=== PATIENT | male | born 1945 | race Caucasian/White ===

== ENCOUNTER 2019-02-03 12:15 | Emergency (ER) | payer OTHER, MEDICARE ==
[~2019-02-03] VITALS: Ht 167.6 cm; Wt 73.0 kg
[~2019-02-03 12:15] MED LIST: ASPI-611 PO; ATOR10TA87 PO; CHOL400T32 PO; CLOP75TA35 PO; DOCU-20 PO; DONE10TA7 PO; FERR325T28 PO; FLO0.1T PO; METO-292 PO; MIDO10TA PO; NEFA200T PO; ONDA4TAB9 PO; PANT-47 PO; PROC10TA10 PO; VENL75TA4 PO
[2019-02-03] MEDS ORDERED: normal saline 1000ML IV soln IVB ONE (12:40)
[2019-02-03] MEDS ORDERED: ondansetron/PF 4mg/2ml inj IV ONE (12:45)
[2019-02-03 13:24] LABS: BASOPHILS # (AUTO) 0.1 X10'3 (0-0.2); BASOPHILS % (AUTO) 0.8 % (0-1); EOSINOPHILS % (AUTO) 0.1 % (0-6); HEMATOCRIT 40.3 % (42.0-52.0); HEMOGLOBIN 13.7 g/dl (14.0-17.9); LYMPHOCYTES # (AUTO) 0.8 X10'3 (1.1-4.8); LYMPHOCYTES % (AUTO) 8.6 % (21-51); MEAN CORPUSCULAR HEMOGLOBIN 31.9 PG (27.0-31.0); MEAN CORPUSCULAR VOLUME 93.8 FL (78-98); MEAN PLATELET VOLUME 9.1 FL (7.4-10.4); MONOCYTES # (AUTO) 0.7 X10'3 (0-0.9); MONOCYTES % (AUTO) 8.3 % (2-12); NEUTROPHILS # (AUTO) 7.3 X10'3 (1.8-7.7); NEUTROPHILS % (AUTO) 82.2 % (42-75); PLATELET COUNT 208 X10'3 (140-440); RED CELL DISTRIBUTION WIDTH 13.6 % (11.5-14.5); WHITE BLOOD COUNT 8.9 X10'3 (4.5-11.0)
[2019-02-03 13:33] LABS: CLARITY,URINE CLEAR (Clear); COLOR,URINE YELLOW (Yellow); GLUCOSE, URINE 500 mg/dl (Neg); KETONES,URINE 15 mg/dl (Neg); LEUKOCYTE ESTERASE ,URINE NEGATIVE (Neg); NITRITES, URINE NEGATIVE (Neg); OCCULT BLOOD,URINE NEGATIVE (Neg); PROTEIN,URINE NEGATIVE (Neg); UROBILINOGEN,URINE 0.2 E.U/dL (0.2-1.0)
[2019-02-03 13:34] LABS: UA COLLECTION TYPE URINAL
[2019-02-03 13:38] LABS: PARTIAL THROMBOPLASTIN TIME 23 SECONDS (22-32)
[2019-02-03 13:45] LABS: ALANINE AMINOTRANSFERASE 25 U/L (12-78); ALBUMIN 3.6 G/DL (3.4-5.0); ALKALINE PHOSPHATASE 82 IU/L (46-116); ANION GAP 9 (8-16); ASPARTATE AMINO TRANSFERASE 14 U/L (10-37); BILIRUBIN,TOTAL 0.6 MG/DL (0.1-1.0); BLOOD UREA NITROGEN 32 MG/DL (7-18); BUN/CREATININE RATIO 14.5 (5.4-32.0); CALCIUM 10.1 MG/DL (8.5-10.1); CHLORIDE 99 MMOL/L (99-107); GLUCOSE 295 MG/DL (70-104); MAGNESIUM 1.8 MG/DL (1.5-2.4); POTASSIUM 3.7 MMOL/L (3.5-5.1); SODIUM 139 MMOL/L (135-145); TOTAL CARBON DIOXIDE 30.9 MMOL/L (24-32); TOTAL PROTEIN 7.1 G/DL (6.4-8.2); eGFR 30 ML/MIN
[2019-02-03 14:13] VITALS: BP 148/70
--- NOTE | 2019-02-03 14:13 | NUR ---
PT TOLERATING PO, PT GIVEN 8OZ CUP OF WATER, FINISHED THE CUP DENIES ANY N/V.
== END 2019-02-03 14:52 | disposition home or self-care (01) ==
LOC: ER 12:16
DX: E11.43 Type 2 diabetes mellitus with diabetic autonomic (poly)neuropathy (principal); K31.84 Gastroparesis; R11.2 Nausea with vomiting, unspecified; I25.10 Atherosclerotic heart disease of native coronary artery without angina pectoris; E78.00 Pure hypercholesterolemia, unspecified; I10 Essential (primary) hypertension; E03.9 Hypothyroidism, unspecified; Z87.891 Personal history of nicotine dependence; Z90.49 Acquired absence of other specified parts of digestive tract; Z95.1 Presence of aortocoronary bypass graft; Z79.82 Long term (current) use of aspirin; Z79.899 Other long term (current) drug therapy
CPT/HCPCS: 36415; 71045; 80053; 81003; 82948; 83605; 83735; 84145; 84484; 85025; 85610; 85730; 93005; 96361; 96374; 99284; J2405; J7030

== ENCOUNTER 2019-07-25 12:22 | Inpatient (IN) | payer MEDICARE, OTHER ==
[~2019-07-25] VITALS: Ht 172.7 cm; Wt 72.7 kg
[2019-07-25] MEDS ORDERED: normal saline 1000ML IV soln IV ONE (12:45)
[2019-07-25 13:36] LABS: BASOPHILS # (AUTO) 0.1 X10'3 (0-0.2); BASOPHILS % (AUTO) 1.3 % (0-1); EOSINOPHILS # (AUTO) 0.3 X10'3 (0-0.9); EOSINOPHILS % (AUTO) 4.5 % (0-6); HEMATOCRIT 40.2 % (42.0-52.0); HEMOGLOBIN 13.5 g/dl (14.0-17.9); LYMPHOCYTES # (AUTO) 1.5 X10'3 (1.1-4.8); LYMPHOCYTES % (AUTO) 22.2 % (21-51); MEAN CORPUSCULAR HGB CONC 33.6 g/dL (33.0-36.5); MEAN CORPUSCULAR VOLUME 95.4 FL (78-98); MEAN PLATELET VOLUME 8.8 FL (7.4-10.4); MONOCYTES % (AUTO) 14.3 % (2-12); NEUTROPHILS # (AUTO) 3.9 X10'3 (1.8-7.7); NEUTROPHILS % (AUTO) 57.7 % (42-75); PLATELET COUNT 193 X10'3 (140-440); RED BLOOD COUNT 4.21 X10'6 (4.70-6.10); RED CELL DISTRIBUTION WIDTH 13.6 % (11.5-14.5); WHITE BLOOD COUNT 6.8 X10'3 (4.5-11.0)
[2019-07-25 13:55] LABS: ALANINE AMINOTRANSFERASE 27 U/L (12-78); ALBUMIN 3.1 G/DL (3.4-5.0); ALBUMIN/GLOBULIN RATIO 0.8 (1.1-1.5); ALKALINE PHOSPHATASE 82 IU/L (46-116); ANION GAP 7 (8-16); ASPARTATE AMINO TRANSFERASE 23 U/L (10-37); BILIRUBIN,TOTAL 0.3 MG/DL (0.1-1.0); CALCIUM 9.7 MG/DL (8.5-10.1); CHLORIDE 111 MMOL/L (99-107); CREATININE 1.43 MG/DL (0.60-1.10); GLUCOSE 88 MG/DL (70-104); PARTIAL THROMBOPLASTIN TIME 21 SECONDS (22-32); SODIUM 151 MMOL/L (135-145); TOTAL CARBON DIOXIDE 32.6 MMOL/L (24-32); TOTAL PROTEIN 6.8 G/DL (6.4-8.2); eGFR 49 ML/MIN
[2019-07-25 13:57] LABS: POTASSIUM 2.9 MMOL/L (3.5-5.1)
[2019-07-25] MEDS ORDERED: potassium Cl 10 mEq/100mL bag IV ONE (14:00)
[2019-07-25 14:33] LABS: BLOOD UREA NITROGEN 21 MG/DL (7-18); BUN/CREATININE RATIO 14.7 (5.4-32.0)
[2019-07-25] MEDS ORDERED: acetaminophen 650mg rectal suppository RC PRN (15:05)
[2019-07-25] MEDS ORDERED: ondansetron/PF 4mg/2ml inj IV PRN (15:05)
[2019-07-25] MEDS ORDERED: acetaminophen 325mg tablet PO PRN ×2 (15:05)
[2019-07-25] MEDS ORDERED: bisacodyl 10mg suppository rectal RC PRN (15:05)
[2019-07-25] MEDS ORDERED: magnesium 4gm in 100ml NS 100 ML IV PRN (15:05)
[2019-07-25] MEDS ORDERED: magnesium 2GM in 50ml NS 50 ML IV PRN (15:05)
[2019-07-25] MEDS ORDERED: diphenhydrAMINE 50 mg/ml inj IV PRN (15:05)
[2019-07-25] MEDS ORDERED: mag hydrox/Alum hydrox/simeth 30ml oral suspension PO PRN (15:05)
[2019-07-25] MEDS ORDERED: magnesium hydroxide 30ml (MOM) UD suspension PO PRN (15:05)
[2019-07-25] MEDS ORDERED: morphine 2 MG/ML inj. syringe IV PRN ×2 (15:05)
[2019-07-25] MEDS ORDERED: HYDROcodone/acetaminophen 10/325mg tab PO PRN (15:05)
[2019-07-25] MEDS ORDERED: potassium CL 10mEq/100ml bag 100 ML IV PRN (15:05)
[2019-07-25] MEDS ORDERED: HYDROcodone/acetaminophen 5mg/325mg tablet PO PRN (15:05)
[2019-07-25] MEDS ORDERED: diphenhydrAMINE 25mg capsule PO PRN (15:05)
[2019-07-25] MEDS: K and/or MAG REPLACEMENT MC SCH (15:05)
--- NOTE | 2019-07-25 15:15 | NUR ---
URINE SAMPLE COLLECTED BY STARIGHT CATH EMPTIED 250 ML OF URINE ,COLOR LESS URINE .PT DIAPER WET SHEET CHANGED.
[2019-07-25 15:24] LABS: CLARITY,URINE CLEAR (Clear); COLOR,URINE STRAW (Yellow); GLUCOSE, URINE NEGATIVE (Neg); KETONES,URINE NEGATIVE (Neg); LEUKOCYTE ESTERASE ,URINE NEGATIVE (Neg); NITRITES, URINE NEGATIVE (Neg); OCCULT BLOOD,URINE TRACE-INTACT (Neg); PH,URINE 7.5 (4.8-8.0); PROTEIN,URINE NEGATIVE (Neg); UROBILINOGEN,URINE 0.2 E.U/dL (0.2-1.0)
[2019-07-25 15:31] LABS: UA COLLECTION TYPE STRAIGHT CATH
[2019-07-25 15:34] LABS: HEMOGLOBIN A1C 6.5 % (4.5-6.2)
[2019-07-25 15:38] LABS: BACTERIA,URINE NONE SEEN /HPF (Neg); RBC,URINE 0-2 /HPF (0-2); WBC,URINE 0-4 /HPF (0-4)
[2019-07-25] MEDS: normal saline 1000ml 1,000 ML IV SCH (15:38)
[2019-07-25 15:39] LABS: SQUAMOUS EPITHELIAL CELL,UR FEW /LPF (FEW)
--- NOTE | 2019-07-25 17:10 | NUR ---
PT BED FULLY WET DIAPER CHANGED WITH ALL SHEET AND CLOTHING ,PT HAD BM .IV FLUID INFUSING PER MD ORDERS,NO DISTRESS NOTED.
[2019-07-25] MEDS: metoclopramide 10mg tablet PO SCH (18:40)
--- NOTE | 2019-07-25 18:42 | NUR ---
PT MED SCHEDULED ADMINI ,PT VITALS STABLE HR 96,SPO2 97 ON RA,179/115 BP .R 14.PT JUST LEFT IV FLUID INFUSING PER MD ORDER.
--- NOTE | 2019-07-25 19:40 | NUR ---
pt sitting up in bed eating his dinner independently.no distress noted.will cont monitor.
[2019-07-25] MEDS ORDERED: MIDODRINE HCL 10 MG PO SCH (20:00)
[2019-07-25] MEDS: heparin, porcine 5000 units/ml vial SQ SCH (20:37)
[2019-07-25] MEDS: docusate sod 100mg capsule PO SCH (20:37)
[2019-07-25] MEDS: atorvastatin 10mg tablet PO SCH (20:37)
[2019-07-25] MEDS ORDERED: NEFAZODONE PO SCH (21:00)
[2019-07-25] MEDS: pantoprazole 40mg Tablet.DR PO SCH (21:53)
[2019-07-25] MEDS: donepezil 5mg tablet PO SCH (21:53)
[2019-07-25] MEDS: fludrocortisone acetate 0.1mg tablet PO SCH (21:53)
[2019-07-25] MEDS: potassium CL 10mEq/100ml bag 100 ML IV PRN (21:54)
[2019-07-25] MEDS ORDERED: midodrine 5mg tablet PO SCH (22:02)
[2019-07-26] MEDS: normal saline 1000ml 1,000 ML IV SCH ×2 (01:03→05:24)
[2019-07-26] MEDS: potassium CL 10mEq/100ml bag 100 ML IV PRN ×2 (01:37→09:20)
[2019-07-26 05:29] LABS: BASOPHILS # (AUTO) 0.1 X10'3 (0-0.2); BASOPHILS % (AUTO) 1.4 % (0-1); EOSINOPHILS # (AUTO) 0.2 X10'3 (0-0.9); EOSINOPHILS % (AUTO) 2.7 % (0-6); HEMATOCRIT 43.8 % (42.0-52.0); HEMOGLOBIN 14.7 g/dl (14.0-17.9); LYMPHOCYTES # (AUTO) 1.7 X10'3 (1.1-4.8); MEAN CORPUSCULAR HEMOGLOBIN 31.4 PG (27.0-31.0); MEAN CORPUSCULAR HGB CONC 33.5 g/dL (33.0-36.5); MEAN CORPUSCULAR VOLUME 93.7 FL (78-98); MONOCYTES # (AUTO) 0.8 X10'3 (0-0.9); MONOCYTES % (AUTO) 12.3 % (2-12); NEUTROPHILS # (AUTO) 3.9 X10'3 (1.8-7.7); NEUTROPHILS % (AUTO) 58.6 % (42-75); PLATELET COUNT 209 X10'3 (140-440); RED BLOOD COUNT 4.68 X10'6 (4.70-6.10); RED CELL DISTRIBUTION WIDTH 13.6 % (11.5-14.5); WHITE BLOOD COUNT 6.7 X10'3 (4.5-11.0)
--- NOTE | 2019-07-26 06:00 | NUR ---
Patient in room [facility]. I have received report from AURORA Narvaez and had the opportunity to ask questions and assume patient care.
[2019-07-26 06:22] LABS: ALANINE AMINOTRANSFERASE 26 U/L (12-78); ALBUMIN 3.7 G/DL (3.4-5.0); ALBUMIN/GLOBULIN RATIO 0.9 (1.1-1.5); ALKALINE PHOSPHATASE 88 IU/L (46-116); ANION GAP 10 (8-16); ASPARTATE AMINO TRANSFERASE 18 U/L (10-37); BILIRUBIN,TOTAL 0.5 MG/DL (0.1-1.0); BLOOD UREA NITROGEN 12 MG/DL (7-18); BUN/CREATININE RATIO 12.4 (5.4-32.0); CALCIUM 9.3 MG/DL (8.5-10.1); CHLORIDE 105 MMOL/L (99-107); CHOL/HDL RATIO 2.3 (0.00-4.99); CHOLESTEROL 180 MG/DL (0-200); CREATININE 0.97 MG/DL (0.60-1.10); GLUCOSE 274 MG/DL (70-104); HDL CHOLESTEROL 78 MG/DL (35-60); LDL CHOLESTEROL 85 MG/DL (50-100); MAGNESIUM 1.4 MG/DL (1.5-2.4); PHOSPHORUS 1.9 MG/DL (2.3-4.5); SODIUM 147 MMOL/L (135-145); TOTAL CARBON DIOXIDE 32.2 MMOL/L (24-32); TOTAL PROTEIN 7.8 G/DL (6.4-8.2); TRIGLYCERIDES 81 MG/DL (20-135); eGFR 76 ML/MIN
[2019-07-26 07:07] LABS: POTASSIUM 2.9 MMOL/L (3.5-5.1)
--- NOTE | 2019-07-26 07:21 | NUR ---
paged dr tapia about K of 2.9 and bp 182/91 awaiting call back
[2019-07-26 07:29] VITALS: BP 182/91
[2019-07-26] MEDS: K and/or MAG REPLACEMENT MC SCH (07:51)
[2019-07-26] MEDS: ferrous sulfate 325mg tablet PO SCH (07:54)
[2019-07-26] MEDS: potassium Cl 20 mEq SR tablet PO PRN ×3 (07:54→18:51)
[2019-07-26] MEDS: clopidogrel 75mg tablet PO SCH (07:54)
[2019-07-26] MEDS: metoclopramide 10mg tablet PO SCH ×3 (07:54→17:59)
[2019-07-26] MEDS: pantoprazole 40mg Tablet.DR PO SCH ×2 (07:54→20:58)
[2019-07-26] MEDS: aspirin 81mg tablet.DR PO SCH (07:55)
[2019-07-26] MEDS: docusate sod 100mg capsule PO SCH ×2 (07:55→20:00)
[2019-07-26] MEDS: magnesium Cl slow-release 64mg tablet PO PRN ×2 (07:55→21:00)
[2019-07-26] MEDS: venlafaxine XR 75mg capsule (Q24H) PO SCH (07:55)
[2019-07-26] MEDS: vitamin D (cholecalciferol) 1,000 unit tablet PO SCH (07:55)
[2019-07-26 08:23] VITALS: BP 172/93
[2019-07-26] MEDS: heparin, porcine 5000 units/ml vial SQ SCH ×2 (10:08→20:58)
--- NOTE | 2019-07-26 11:15 | NUR ---
pt on iron supplements noted black stool will inform dr Addendum: 07/26/19 at 1122 by Rhonda Armstrong RN Amended: Links added.
[2019-07-26 11:24] VITALS: BP 169/73
--- NOTE | 2019-07-26 12:19 | NUR ---
paged regarding insulin pump order or to follow hyperglycemic protocol. Awaiting callback.
--- NOTE | 2019-07-26 14:45 | NUR ---
Dr. Reeves paged regarding phos of 1.9 and asked again if pt should follow hyperglycemic protocol. Awaiting callback.
[2019-07-26] MEDS ORDERED: potassium phosphate inj 30 MMOL in normal saline 500ml IV soln 490 ML IV ONE (15:30)
[2019-07-26] MEDS ORDERED: MESSAGE TO PHARMACY PO ONE (15:30)
[2019-07-26] MEDS ORDERED: dextrose ORAL solution 15 GM/59 ML bottle PO PRN ×2 (15:30)
[2019-07-26] MEDS ORDERED: dextrose 50%-water 50ml dispensing syringe IV PRN ×2 (15:30)
[2019-07-26] MEDS ORDERED: glucagon, human recombinant 1mg kit SUBCUT PRN (15:30)
--- NOTE | 2019-07-26 15:33 | NUR ---
Discussed insulin pump with Dr. Reeves. ordered to remove insulin pump and to follow hyper/hypoglycemic protocol. removed insulin pump and took insulin pump home.
--- NOTE | 2019-07-26 17:05 | NUR ---
Dr. Reeves called regarding BS of 407. ordered 20units of humalog. Will continue to monitor.
[2019-07-26] MEDS ORDERED: dextrose 5%-1/4 normal saline 1,000 ML IV SCH (17:10)
[2019-07-26] MEDS: insulin Lispro (HumaLOG) vial - multi-dose SQ SCH ×2 (17:42→21:51)
[2019-07-26] MEDS: sodium chloride 0.45% 1,000 ML IV SCH (17:58)
--- NOTE | 2019-07-26 18:29 | NUR ---
Problems reprioritized. Patient report given, questions answered & plan of care reviewed with AURORA Leigh.
--- NOTE | 2019-07-26 18:54 | NUR ---
Patient in room [facility]. I have received report from AURORA Layton and had the opportunity to ask questions and assume patient care.
[2019-07-26 19:00] VITALS: BP 179/90
[2019-07-26] MEDS: fludrocortisone acetate 0.1mg tablet PO SCH (20:58)
[2019-07-26] MEDS: atorvastatin 10mg tablet PO SCH (20:59)
[2019-07-26] MEDS: donepezil 5mg tablet PO SCH (20:59)
[2019-07-26] MEDS: NEFAZODONE PO SCH (21:02)
[2019-07-26] MEDS: insulin glargine (Lantus) pen - multi-dose SQ SCH (21:56)
[2019-07-27] VITALS: BP 157/80
[2019-07-27] MEDS: sodium chloride 0.45% 1,000 ML IV SCH ×3 (03:30→13:49)
[2019-07-27 04:50] LABS: BASOPHILS # (AUTO) 0.1 X10'3 (0-0.2); BASOPHILS % (AUTO) 1.7 % (0-1); EOSINOPHILS # (AUTO) 0.1 X10'3 (0-0.9); EOSINOPHILS % (AUTO) 2.5 % (0-6); HEMATOCRIT 37.2 % (42.0-52.0); HEMOGLOBIN 12.6 g/dl (14.0-17.9); LYMPHOCYTES # (AUTO) 1.7 X10'3 (1.1-4.8); LYMPHOCYTES % (AUTO) 30.6 % (21-51); MEAN CORPUSCULAR HEMOGLOBIN 31.8 PG (27.0-31.0); MEAN CORPUSCULAR HGB CONC 33.9 g/dL (33.0-36.5); MEAN CORPUSCULAR VOLUME 93.9 FL (78-98); MONOCYTES # (AUTO) 0.7 X10'3 (0-0.9); MONOCYTES % (AUTO) 11.7 % (2-12); NEUTROPHILS % (AUTO) 53.5 % (42-75); PLATELET COUNT 195 X10'3 (140-440); RED BLOOD COUNT 3.96 X10'6 (4.70-6.10); RED CELL DISTRIBUTION WIDTH 13.5 % (11.5-14.5); WHITE BLOOD COUNT 5.6 X10'3 (4.5-11.0)
[2019-07-27 05:18] LABS: ALANINE AMINOTRANSFERASE 19 U/L (12-78); ALBUMIN/GLOBULIN RATIO 0.9 (1.1-1.5); ALKALINE PHOSPHATASE 85 IU/L (46-116); ANION GAP 11 (8-16); ASPARTATE AMINO TRANSFERASE 11 U/L (10-37); BILIRUBIN,TOTAL 0.5 MG/DL (0.1-1.0); BLOOD UREA NITROGEN 18 MG/DL (7-18); CALCIUM 9.1 MG/DL (8.5-10.1); CHLORIDE 106 MMOL/L (99-107); CREATININE 1.06 MG/DL (0.60-1.10); GLUCOSE 352 MG/DL (70-104); MAGNESIUM 1.6 MG/DL (1.5-2.4); PHOSPHORUS 3.1 MG/DL (2.3-4.5); POTASSIUM 4.1 MMOL/L (3.5-5.1); SODIUM 144 MMOL/L (135-145); TOTAL CARBON DIOXIDE 26.9 MMOL/L (24-32); TOTAL PROTEIN 6.5 G/DL (6.4-8.2); eGFR 69 ML/MIN
--- NOTE | 2019-07-27 06:39 | NUR ---
Problems reprioritized. Patient report given, questions answered & plan of care reviewed with Timothy RN. Arabella Barreto RN
[2019-07-27 07:00] VITALS: BP 174/91
[2019-07-27] MEDS: K and/or MAG REPLACEMENT MC SCH (07:28)
[2019-07-27] MEDS: docusate sod 100mg capsule PO SCH ×2 (07:30→20:00)
[2019-07-27] MEDS: clopidogrel 75mg tablet PO SCH (07:32)
[2019-07-27] MEDS: ferrous sulfate 325mg tablet PO SCH (07:32)
[2019-07-27] MEDS: heparin, porcine 5000 units/ml vial SQ SCH ×2 (07:32→20:50)
[2019-07-27] MEDS: vitamin D (cholecalciferol) 1,000 unit tablet PO SCH (07:33)
[2019-07-27] MEDS: venlafaxine XR 75mg capsule (Q24H) PO SCH (07:33)
[2019-07-27] MEDS: pantoprazole 40mg Tablet.DR PO SCH ×2 (07:33→20:48)
[2019-07-27] MEDS: aspirin 81mg tablet.DR PO SCH (07:33)
[2019-07-27] MEDS: metoclopramide 10mg tablet PO SCH ×2 (07:33→12:31)
[2019-07-27] MEDS: insulin Lispro (HumaLOG) vial - multi-dose SQ SCH ×4 (08:31→20:45)
[2019-07-27 09:00] VITALS: BP 164/83
--- NOTE | 2019-07-27 11:11 | NUR ---
DM consult: Pt with A1c 6.5; DM ed not warranted at this time. Will continue to follow. Addendum: 07/27/19 at [address] Amended: Links added.
--- NOTE | 2019-07-27 11:19 | NUR ---
Morning systolic BP in 170's, recheck in 160's. Now BP 177/74. Dr Reeves notified, awaiting call back for more instruction.
[2019-07-27 11:28] VITALS: BP 177/74
[2019-07-27] MEDS ORDERED: hydrALAZINE 20mg/ml inj. IV PRN (11:40)
[2019-07-27] MEDS: carVEDilol 12.5mg tablet PO SCH ×2 (12:31→20:48)
[2019-07-27 14:41] VITALS: BP 124/66
--- NOTE | 2019-07-27 15:16 | NUR ---
Patient was very fatigued at lunch time, needed help with feeding, needed encouragement and assistance with eating Addendum: 07/27/19 at 1518 by Rhonda Armstrong RN Amended: Links added.
--- NOTE | 2019-07-27 17:23 | NUR ---
Patient was getting raglan TID was concerned about mentation and notified Dr. Reeves. Dr changed reglan to BID, breakfast and dinner. Will continue to monitor
--- NOTE | 2019-07-27 19:05 | NUR ---
Problems reprioritized. Patient report given, questions answered & plan of care reviewed with Valeria RN.
[2019-07-27 19:30] VITALS: BP 143/88
[2019-07-27] MEDS: atorvastatin 10mg tablet PO SCH (20:48)
[2019-07-27] MEDS: donepezil 5mg tablet PO SCH (20:48)
[2019-07-27] MEDS: NEFAZODONE PO SCH (20:48)
[2019-07-27] MEDS: fludrocortisone acetate 0.1mg tablet PO SCH (20:48)
[2019-07-27] MEDS: insulin glargine (Lantus) pen - multi-dose SQ SCH (22:57)
[2019-07-28] VITALS: BP 129/69
[2019-07-28] MEDS: sodium chloride 0.45% 1,000 ML IV SCH ×3 (01:13→21:26)
[2019-07-28 05:22] LABS: BASOPHILS # (AUTO) 0.1 X10'3 (0-0.2); BASOPHILS % (AUTO) 0.8 % (0-1); EOSINOPHILS # (AUTO) 0.3 X10'3 (0-0.9); EOSINOPHILS % (AUTO) 4.3 % (0-6); HEMATOCRIT 34.6 % (42.0-52.0); HEMOGLOBIN 11.9 g/dl (14.0-17.9); LYMPHOCYTES % (AUTO) 25.7 % (21-51); MEAN CORPUSCULAR HEMOGLOBIN 31.7 PG (27.0-31.0); MEAN CORPUSCULAR HGB CONC 34.4 g/dL (33.0-36.5); MEAN CORPUSCULAR VOLUME 92.3 FL (78-98); MEAN PLATELET VOLUME 8.8 FL (7.4-10.4); MONOCYTES # (AUTO) 0.8 X10'3 (0-0.9); MONOCYTES % (AUTO) 10.3 % (2-12); NEUTROPHILS # (AUTO) 4.5 X10'3 (1.8-7.7); NEUTROPHILS % (AUTO) 58.9 % (42-75); PLATELET COUNT 185 X10'3 (140-440); RED BLOOD COUNT 3.75 X10'6 (4.70-6.10); RED CELL DISTRIBUTION WIDTH 13.3 % (11.5-14.5); WHITE BLOOD COUNT 7.6 X10'3 (4.5-11.0)
[2019-07-28 05:55] LABS: ALANINE AMINOTRANSFERASE 17 U/L (12-78); ALBUMIN 2.7 G/DL (3.4-5.0); ALBUMIN/GLOBULIN RATIO 0.8 (1.1-1.5); ALKALINE PHOSPHATASE 65 IU/L (46-116); ANION GAP 7 (8-16); ASPARTATE AMINO TRANSFERASE 14 U/L (10-37); BILIRUBIN,TOTAL 0.4 MG/DL (0.1-1.0); BLOOD UREA NITROGEN 15 MG/DL (7-18); BUN/CREATININE RATIO 15.8 (5.4-32.0); CALCIUM 8.7 MG/DL (8.5-10.1); CHLORIDE 106 MMOL/L (99-107); CREATININE 0.95 MG/DL (0.60-1.10); GLUCOSE 112 MG/DL (70-104); MAGNESIUM 1.7 MG/DL (1.5-2.4); PHOSPHORUS 2.9 MG/DL (2.3-4.5); POTASSIUM 3.1 MMOL/L (3.5-5.1); SODIUM 142 MMOL/L (135-145); TOTAL CARBON DIOXIDE 28.8 MMOL/L (24-32); TOTAL PROTEIN 5.9 G/DL (6.4-8.2); eGFR 78 ML/MIN
--- NOTE | 2019-07-28 06:42 | NUR ---
Patient in room [facility]. I have received report from AURORA Shaw and had the opportunity to ask questions and assume patient care.
[2019-07-28 07:00] VITALS: BP 129/72
[2019-07-28] MEDS: pantoprazole 40mg Tablet.DR PO SCH ×2 (07:27→20:53)
[2019-07-28] MEDS: metoclopramide 10mg tablet PO SCH ×2 (07:27→17:39)
[2019-07-28] MEDS: venlafaxine XR 75mg capsule (Q24H) PO SCH (07:28)
[2019-07-28] MEDS: clopidogrel 75mg tablet PO SCH (07:28)
[2019-07-28] MEDS: aspirin 81mg tablet.DR PO SCH (07:28)
[2019-07-28] MEDS: carVEDilol 12.5mg tablet PO SCH ×2 (07:28→20:53)
[2019-07-28] MEDS: heparin, porcine 5000 units/ml vial SQ SCH ×2 (07:28→20:53)
[2019-07-28] MEDS: potassium Cl 20 mEq SR tablet PO PRN ×2 (07:28→14:09)
[2019-07-28] MEDS: vitamin D (cholecalciferol) 1,000 unit tablet PO SCH (07:28)
[2019-07-28] MEDS: ferrous sulfate 325mg tablet PO SCH (07:28)
[2019-07-28] MEDS: docusate sod 100mg capsule PO SCH ×2 (07:29→20:53)
[2019-07-28] MEDS: K and/or MAG REPLACEMENT MC SCH (08:00)
[2019-07-28] MEDS: insulin Lispro (HumaLOG) vial - multi-dose SQ SCH ×3 (08:13→18:59)
[2019-07-28 11:05] VITALS: BP 160/83
[2019-07-28] MEDS ORDERED: magnesium Cl slow-release 64mg tablet PO PRN (17:40)
[2019-07-28] MEDS ORDERED: potassium Cl 20 mEq SR tablet PO PRN ×2 (17:40)
[2019-07-28] MEDS ORDERED: magnesium 4gm in 100ml NS 100 ML IV PRN (17:40)
[2019-07-28] MEDS ORDERED: potassium CL 10mEq/100ml bag 100 ML IV PRN (17:40)
[2019-07-28 18:00] VITALS: BP 151/72
--- NOTE | 2019-07-28 18:30 | NUR ---
Problems reprioritized. Patient report given, questions answered & plan of care reviewed with AURORA Tang.
--- NOTE | 2019-07-28 18:30 | NUR ---
Patient in room [facility]. I have received report from Shanell SIMON and had the opportunity to ask questions and assume patient care.
[2019-07-28] MEDS: fludrocortisone acetate 0.1mg tablet PO SCH (20:52)
[2019-07-28] MEDS: donepezil 5mg tablet PO SCH (20:52)
[2019-07-28] MEDS: atorvastatin 10mg tablet PO SCH (20:52)
[2019-07-28] MEDS: NEFAZODONE PO SCH (20:56)
[2019-07-28] MEDS: insulin glargine (Lantus) pen - multi-dose SQ SCH (21:20)
[2019-07-29] VITALS: BP 151/71
[2019-07-29] MEDS: sodium chloride 0.45% 1,000 ML IV SCH (05:06)
[2019-07-29 05:30] LABS: BASOPHILS # (AUTO) 0.1 X10'3 (0-0.2); BASOPHILS % (AUTO) 0.8 % (0-1); EOSINOPHILS # (AUTO) 0.3 X10'3 (0-0.9); EOSINOPHILS % (AUTO) 3.7 % (0-6); HEMATOCRIT 37.3 % (42.0-52.0); HEMOGLOBIN 12.9 g/dl (14.0-17.9); LYMPHOCYTES # (AUTO) 1.2 X10'3 (1.1-4.8); LYMPHOCYTES % (AUTO) 14.5 % (21-51); MEAN CORPUSCULAR HEMOGLOBIN 32.4 PG (27.0-31.0); MEAN CORPUSCULAR HGB CONC 34.6 g/dL (33.0-36.5); MEAN CORPUSCULAR VOLUME 93.5 FL (78-98); MEAN PLATELET VOLUME 9.2 FL (7.4-10.4); MONOCYTES # (AUTO) 0.8 X10'3 (0-0.9); MONOCYTES % (AUTO) 9.2 % (2-12); NEUTROPHILS # (AUTO) 6.1 X10'3 (1.8-7.7); NEUTROPHILS % (AUTO) 71.8 % (42-75); PLATELET COUNT 183 X10'3 (140-440); RED BLOOD COUNT 3.99 X10'6 (4.70-6.10); RED CELL DISTRIBUTION WIDTH 13.4 % (11.5-14.5); WHITE BLOOD COUNT 8.5 X10'3 (4.5-11.0)
[2019-07-29 05:33] LABS: ALANINE AMINOTRANSFERASE 18 U/L (12-78); ALBUMIN 2.9 G/DL (3.4-5.0); ALBUMIN/GLOBULIN RATIO 0.8 (1.1-1.5); ALKALINE PHOSPHATASE 80 IU/L (46-116); ANION GAP 10 (8-16); ASPARTATE AMINO TRANSFERASE 13 U/L (10-37); BILIRUBIN,TOTAL 0.3 MG/DL (0.1-1.0); BLOOD UREA NITROGEN 14 MG/DL (7-18); BUN/CREATININE RATIO 15.1 (5.4-32.0); CALCIUM 8.8 MG/DL (8.5-10.1); CHLORIDE 107 MMOL/L (99-107); CREATININE 0.93 MG/DL (0.60-1.10); GLUCOSE 149 MG/DL (70-104); MAGNESIUM 1.6 MG/DL (1.5-2.4); PHOSPHORUS 3.2 MG/DL (2.3-4.5); POTASSIUM 3.5 MMOL/L (3.5-5.1); SODIUM 145 MMOL/L (135-145); TOTAL CARBON DIOXIDE 27.7 MMOL/L (24-32); TOTAL PROTEIN 6.5 G/DL (6.4-8.2); eGFR 80 ML/MIN
--- NOTE | 2019-07-29 06:36 | NUR ---
Problems reprioritized. Patient report given, questions answered & plan of care reviewed with Shanell SIMON.
--- NOTE | 2019-07-29 06:39 | NUR ---
Patient in room [facility]. I have received report from AURORA Tang and had the opportunity to ask questions and assume patient care.
[2019-07-29 08:00] VITALS: BP 187/130
[2019-07-29] MEDS: K and/or MAG REPLACEMENT MC SCH (08:00)
[2019-07-29] MEDS: venlafaxine XR 75mg capsule (Q24H) PO SCH (08:00)
[2019-07-29] MEDS: docusate sod 100mg capsule PO SCH (08:00)
[2019-07-29] MEDS: ferrous sulfate 325mg tablet PO SCH (08:20)
[2019-07-29] MEDS: carVEDilol 12.5mg tablet PO SCH (08:20)
[2019-07-29] MEDS: vitamin D (cholecalciferol) 1,000 unit tablet PO SCH (08:20)
[2019-07-29] MEDS: pantoprazole 40mg Tablet.DR PO SCH (08:20)
[2019-07-29] MEDS: clopidogrel 75mg tablet PO SCH (08:20)
[2019-07-29] MEDS: aspirin 81mg tablet.DR PO SCH (08:20)
[2019-07-29] MEDS: metoclopramide 10mg tablet PO SCH ×2 (08:20→16:57)
[2019-07-29] MEDS: heparin, porcine 5000 units/ml vial SQ SCH (08:20)
[2019-07-29] MEDS: insulin Lispro (HumaLOG) vial - multi-dose SQ SCH ×2 (08:30→13:56)
[2019-07-29 10:33] VITALS: BP 140/72
[2019-07-29 11:00] VITALS: BP 140/77
--- NOTE | 2019-07-29 11:01 | NUR ---
During the morning med pass for pt, Dr Fisher called me on the spectra link and stated he needed to see me for an urgent matter. All the medications had been scanned and I had began opening the medications into a cup. D/T the urgent matter with Dr Fisher, I was unable to complete the med pass. Another RN was asked to take over and complete the med pass for me, as well as co-signed 11 units of humalog insulin. The medications scanned by myself were not saved and manual administration of medications was done. healthcare recruiter was notified of events.
[2019-07-29] MEDS ORDERED: CARV-50 PO (12:37)
--- NOTE | 2019-07-29 14:05 | NUR ---
Problems reprioritized. Patient report given, questions answered & plan of care reviewed with AURORA Layton.
--- NOTE | 2019-07-29 14:05 | NUR ---
Received patient report from Shanell SIMON.
--- NOTE | 2019-07-29 14:24 | NUR ---
Initial: Pt admit with acute on chronic metabolic encephalopathy or advancing dementia along with generalized deconditioning. Pt currently on low fiber CHO controlled diet, pureed with thin liquids per ST reciqra, previously documented with fluctuating PO intake 50% and 100% however now stable at 100% PO intake meeting nutrient needs. [facility] 07/29. Per CM notes pt has been accepted to [facility] with d/c time 1700. Will continue to follow. Addendum: 07/29/19 at [address] Amended: Links added.
--- NOTE | 2019-07-29 17:23 | NUR ---
Patient discharged with all belongings. [facility] taking pt home. Home meds given back to pt. IV taken out.
== END 2019-07-29 17:25 | disposition hospice, home (50) | DRG 56 ==
LOC: ER 12:22 → SUR 3N 21:01
PROVIDERS: ADMIT Family Medicine; ATTEND Family Medicine
DX: G30.9 Alzheimer's disease, unspecified (principal); I21.A1 Myocardial infarction type 2; G93.41 Metabolic encephalopathy; N17.9 Acute kidney failure, unspecified; E87.0 Hyperosmolality and hypernatremia; E87.1 Hypo-osmolality and hyponatremia; F02.80 Dementia in other diseases classified elsewhere, unspecified severity, without behavioral disturbance, psychotic disturbance, mood disturbance, and anxiety; E87.6 Hypokalemia; E86.0 Dehydration; R62.7 Adult failure to thrive; E03.9 Hypothyroidism, unspecified; E78.00 Pure hypercholesterolemia, unspecified; E78.5 Hyperlipidemia, unspecified; I10 Essential (primary) hypertension; I25.10 Atherosclerotic heart disease of native coronary artery without angina pectoris; Z66 Do not resuscitate; Z96.41 Presence of insulin pump (external) (internal); F32.9 Major depressive disorder, single episode, unspecified; E10.65 Type 1 diabetes mellitus with hyperglycemia; Z95.1 Presence of aortocoronary bypass graft; Z79.4 Long term (current) use of insulin; Z90.49 Acquired absence of other specified parts of digestive tract; Z82.49 Family history of ischemic heart disease and other diseases of the circulatory system; Z80.9 Family history of malignant neoplasm, unspecified; I25.2 Old myocardial infarction; Z68.24 Body mass index [BMI] 24.0-24.9, adult
CPT/HCPCS: 36415; 70450; 71045; 80053; 80061; 81001; 82948; 83036; 83605; 83735; 84100; 84145; 84484; 85025; 85610; 85730; 87040; 87081; 92508; 92616; 93005; 93306; 96365; 97110; 97116; 97161; 97530; 97535; 99285; G0378; J1644; J1815; J3480; J7030; J7040; J8597